=== PATIENT | female | born 1980 | race Caucasian/White ===

== ENCOUNTER 2020-12-05 07:46 | Day surgery (SDC) | payer MEDICAID ==
[2020-12-05] MEDS ORDERED: Propofol 200 MG/20 ML SDV ONE ×4 (08:28→09:47)
[2020-12-05] MEDS ORDERED: Midazolam 1 MG/ML 2 ML SDV ONE (08:28)
[2020-12-05] MEDS ORDERED: fentaNYL 100 MCG/2 ML SDV ONE (08:28)
[2020-12-05] MEDS: Sodium Chloride 0.9% 1,000 ML IV SCH (08:30)
[2020-12-05] MEDS: ceFAZolin 2 GM in Premix Bag 1 BAG IV ONE (09:17)
[2020-12-05] MEDS: metroNIDAZOLE/Normal Saline 500 MG in Premix Bag 1 BAG IV ONE (09:19)
[2020-12-05] MEDS: Bupivacaine 0.5% 50 ML MDV ONE (09:40)
[2020-12-05] MEDS: Lidocaine 1% with EPINEPHrine 1:100,000 50 ML MDV ONE (09:40)
--- NOTE | 2020-12-06 10:07 | OR ---
DATE OF PROCEDURE: 12/05/2020 SURGEON: Riaz Hennessy MD PROCEDURE: Excision of vaginal cyst, right inferior aspect. PREOPERATIVE DIAGNOSIS: Vaginal cyst. POSTOPERATIVE DIAGNOSIS: Vaginal cyst. RISKS: Risks, benefits, alternatives, and limitations including, but not limited to infection, bleeding, perforation, false positives and false negatives were explained to the patient and she wished to proceed. PROCEDURE IN DETAIL: The patient was placed in supine position. The area was prepped and draped. The vaginal cyst would be on the inferior posterior aspect of the labia majora. This was numbed with 1% lidocaine. A single incision was made approximately 1.5 cm in size. This was then excised in total with a Metzenbaum scissors. The cystic-type lesion was not perforated during removal. This wound was closed with interrupted chromic sutures after irrigation. The patient tolerated the procedure well. Riaz Hennessy MD /[id number]
== END 2020-12-05 11:10 | disposition home or self-care (01) ==
LOC: JP.SDS 07:46
PROVIDERS: ATTEND Surgery
DX: D39.8 Neoplasm of uncertain behavior of other specified female genital organs (principal); G89.29 Other chronic pain; Z79.899 Other long term (current) drug therapy; Z87.891 Personal history of nicotine dependence
CPT/HCPCS: 81025; 88305; 88342; 88360; J0690; J2250; J2704; J3010; J3490; J7030

== ENCOUNTER 2021-07-24 14:40 | Emergency (ER) | payer OTHER, MEDICAID ==
[2021-07-24] MEDS ORDERED: Iopamidol 612 MG/ML 100 ML Bottle IV SCH (17:00)
[2021-07-24] MEDS ORDERED: Sodium Chloride 0.9% 80 ML IV SCH (17:00)
--- NOTE | 2021-07-24 18:03 | CRLCT ---
For Patients: As a result of the Century Cures Act, medical imaging exams and procedure reports are released immediately into your electronic medical record. You may view this report before your referring provider. If you have questions, please contact your health care provider. INDICATION: Throat pain. Difficulty swallowing. TECHNIQUE: CT of the neck with 100 cc Isovue-300 iodinated contrast agent. Coronal and sagittal reconstructions are included. COMPARISON: None. FINDINGS: There is no mass or lymphadenopathy within the suprahyoid or infrahyoid neck. The oral cavity, nasopharyngeal, oropharyngeal and hypopharyngeal spaces are normal. The supraglottic, glottic and infraglottic larynx are normal. The airway including the trachea is normal and is patent. The parotid glands, submandibular and sublingual glands are normal in appearance. The thyroid gland is normal in appearance. The vascular structures opacify normally with contrast material. No suspicious lytic or blastic osseous lesions. Scattered cervical spondylosis without significant bony neural foraminal stenosis. No periapical dental disease. Visualized paranasal sinuses and mastoid air cells are clear. Visualized orbital and intracranial contents are normal. Supraclavicular regions, mediastinum and soft tissues of the imaged chest wall are normal. Visualized portions of the upper lungs are clear. IMPRESSION: 1. No evidence of active inflammatory/infectious process involving the deep spaces of the suprahyoid/infrahyoid neck. 2. No mass or lymphadenopathy within the neck. Please note that all CT scans at this facility use dose modulation, iterative reconstruction, and/or weight-based dosing when appropriate to reduce radiation dose to as low as reasonably achievable. Dictated by Aniceto Rich MD @ 07/24/2021 6:02:04 PM (Electronically Signed)
--- NOTE | 2021-07-24 18:36 | EDM.PDOC ---
ED HPI GENERAL MEDICAL PROBLEM - General Chief Complaint: ENT Problem Stated Complaint: HARD SWALLOWING Time Seen by Provider: 07/24/21 16:30 Source of Information: Reports: Patient, Old Records History Limitations: Reports: No Limitations - History of Present Illness INITIAL COMMENTS - FREE TEXT/NARRATIVE: Vandana is a 41-year-old female for med xanthine to the ED for evaluation of painful swallowing and difficulty swallowing for the last 1 to 2 months. Patient has a history for [place] complex and is concerned that there may be mucosal mass that is impeding her ability to swallow. She has been seen multiple times in the clinic for this without any resolution of symptoms. She does have a history also of gastroesophageal reflux disease and takes omeprazole for this. She denies any fever or chills, difficulty with breathing, nausea or vomiting. Throat Pain Score (Numeric/FACES): 9 - Related Data Allergies Allergy/AdvReac Type Severity Reaction Status Date / Time No Known Allergies Allergy Verified 07/24/21 15:19 Home Meds: Home Meds Acetaminophen [Acetaminophen Extra Strength] 1,000 mg PO Q8HR PRN 12/02/20 [History] Ibuprofen [Motrin] 800 mg PO Q8HR PRN 12/02/20 [History] hydrOXYzine HCL [hydrOXYzine] 25 mg PO DAILY PRN 12/02/20 [History] Melatonin 5 mg PO BEDTIME PRN 12/05/20 [History] Fluconazole [Diflucan] 100 mg PO DAILY #15 tab 07/24/21 [Rx] Past Medical History HEENT History: Reports: None Cardiovascular History: Reports: None Respiratory History: Reports: None Gastrointestinal History: Reports: None Genitourinary History: Reports: None [employer] History: Reports: None Musculoskeletal History: Reports: None Neurological History: Reports: None Psychiatric History: Reports: None Endocrine/Metabolic History: Reports: None Hematologic History: Reports: None Immunologic History: Reports: None Oncologic (Cancer) History: Reports: None Other Oncologic History: thibodeaux complex history Dermatologic History: Reports: None Other Dermatologic History: Thibodeaux complex cyst involved - Infectious Disease History Infectious Disease History: Reports: Novel Coronavirus Other Infectious Disease History: had covid in April - Past Surgical History HEENT Surgical History: Reports: Myringotomy w Tube(s) Cardiovascular Surgical History: Reports: None Respiratory Surgical History: Reports: None GI Surgical History: Reports: None Female Surgical History: Reports: Section Other Female Surgeries/Procedures: Thibodeaux complex cyst removed Endocrine Surgical History: Reports: None Neurological Surgical History: Reports: None Musculoskeletal Surgical History: Reports: None Oncologic Surgical History: Reports: None Dermatological Surgical History: Reports: None Social & Family History - Tobacco Use Tobacco Use Status *Q: Never Tobacco User - Caffeine Use Caffeine Use: Reports: Coffee, Soda - Recreational Drug Use Recreational Drug Use: No ED ROS ENT - Review of Systems Review Of Systems: See Below Constitutional: Reports: No Symptoms HEENT: Reports: Throat Pain (Difficulty swallowing with pain with swallowing) Respiratory: Reports: No Symptoms Cardiovascular: Reports: No Symptoms Endocrine: Reports: No Symptoms GI/Abdominal: Reports: No Symptoms : Reports: No Symptoms Musculoskeletal: Reports: No Symptoms Skin: Reports: No Symptoms Neurological: Reports: No Symptoms Psychiatric: Reports: No Symptoms Hematologic/Lymphatic: Reports: No Symptoms ED EXAM, ENT - Physical Exam Exam: See Below Exam Limited By: No Limitations General Appearance: Alert, Anxious, Mild Distress, Other (Tearful) Eye Exam: Bilateral Eye: EOMI, PERRL Nose: Normal Inspection, Normal Mucousa Mouth/Throat: Normal Inspection, Normal Gums, Normal Lips, Normal Oropharynx Head: Atraumatic, Normocephalic Neck: Normal Inspection, Supple, Non-Tender, Full Range of Motion Respiratory/Chest: No Respiratory Distress, Lungs Clear, Normal Breath Sounds, No Accessory Muscle Use. No: Stridor Cardiovascular: Normal Peripheral Pulses, Regular Rate, Rhythm, No Murmur Neurological: Alert, Oriented, CN II-XII Intact, Normal Cognition, No Motor/Sensory Deficits Psychiatric: Anxious, Tearful Course - Vital Signs Last Recorded V/S: Last Vital Signs Temp 36.6 C 07/24/21 15:18 Pulse 72 07/24/21 15:18 Resp 16 07/24/21 15:18 BP 155/98 H 07/24/21 15:18 Pulse Ox 99 07/24/21 15:18 - Orders/Labs/Meds Orders: Active Orders 24 hr Category Date Time Status Iopamidol [Isovue-300 (61%)] Med 07/24/21 17:00 Active 100 ml IV . DIRECTED Sodium Chloride 0.9% [Normal Saline] 80 ml Med 07/24/21 17:00 Active IV ASDIRECTED Medication Orders Sodium Chloride (Normal Saline) 80 mls @ 3 mls/sec IV ASDIRECTED ROSAURA Last Admin: 07/24/21 17:16 Dose: 3 mls/sec Documented by: STACMAG Iopamidol (Iopamidol 612 Mg/Ml 100 Ml Bottle) 100 ml IV . DIRECTED ROSAURA Last Admin: 07/24/21 17:16 Dose: 100 ml Documented by: HI Labs: Laboratory Tests 07/24/21 07/24/21 Range/Units 16:50 16:50 WBC 7.0 (4.5-11.0) K/uL RBC 4.19 (3.30-5.50) M/uL Hgb 11.5 L (12.0-15.0) g/dL Hct 36.6 (36.0-48.0) % MCV 87 (80-98) fL MCH 27 (27-31) pg MCHC 31 L (32-36) % Plt Count 270 (150-400) K/uL Neut % (Auto) 50.9 (36-66) % Lymph % (Auto) 40.9 (24-44) % [place]ades % (Auto) 6.2 H (2-6) % Eos % (Auto) 1.6 L (2-4) % Baso % (Auto) 0.4 (0-1) % Sodium 144 (140-148) mmol/L Potassium 4.4 (3.6-5.2) mmol/L Chloride 107 (100-108) mmol/L Carbon Dioxide 25 (21-32) mmol/L Anion Gap 11.6 (5.0-14.0) mmol/L BUN 12 (7-18) mg/dL Creatinine 0.9 (0.6-1.0) mg/dL Est Cr Clr Drug Dosing 67.36 mL/min Estimated GFR (MDRD) > 60 (>60) Glucose 94 (74-106) mg/dL Calcium 8.6 (8.5-10.1) mg/dL C-Reactive Protein 0.06 (0.0-0.3) mg/dL Meds: Medications Generic Name Dose Route Start Last Admin Trade Name Freq PRN Reason Stop Dose Admin Sodium Chloride 80 mls @ 3 mls/sec 07/24/21 17:00 07/24/21 17:16 Normal Saline IV 3 mls/sec ASDIRECTED ROSAURA Administration Iopamidol 100 ml 07/24/21 17:00 07/24/21 17:16 Iopamidol 612 Mg/Ml 100 Ml Bottle IV 100 ml . DIRECTED ROSAURA Administration - Radiology Interpretation Free Text/Narrative:: Reviewed the images of the CT of the soft tissue neck with contrast as well as the report. The report is as follows: FINDINGS: There is no mass or lymphadenopathy within the suprahyoid or infrahyoid neck. The oral cavity, nasopharyngeal, oropharyngeal and hypopharyngeal spaces are normal. The supraglottic, glottic and infraglottic larynx are normal. The airway including the trachea is normal and is patent. The parotid glands, submandibular and sublingual glands are normal in appearance. The thyroid gland is normal in appearance. The vascular structures opacify normally with contrast material. No suspicious lytic or blastic osseous lesions. Scattered cervical spondylosis without significant bony neural foraminal stenosis. No periapical dental disease. Visualized paranasal sinuses and mastoid air cells are clear. Visualized orbital and intracranial contents are normal. Supraclavicular regions, mediastinum and soft tissues of the imaged chest wall are normal. Visualized portions of the upper lungs are clear. IMPRESSION: 1. No evidence of active inflammatory/infectious process involving the deep spaces of the suprahyoid/infrahyoid neck. 2. No mass or lymphadenopathy within the neck. Please note that all CT scans at this facility use dose modulation, iterative reconstruction, and/or weight-based dosing when appropriate to reduce radiation dose to as low as reasonably achievable. Dictated by Aniceto Rich MD @ 07/24/2021 6:02:04 PM - Re-Assessments/Exams Free Text/Narrative Re-Assessment/Exam: 07/24/21 18:27 reviewed the patient's labs including a normal CBC, basic metabolic profile and C-reactive protein. In addition, the soft tissue of the neck failed to demonstrate any significant anatomical abnormalities to account for difficulty or painful swallowing. There was no adenopathy, supraglottic or infraglottic abnormalities, esophageal abnormalities, or retropharyngeal abnormalities. I reviewed her [facility] medical record and it appears during her examination on 07/21/2021 they mention cobblestoning in the retropharynx. This raises the question as to whether she may have candidal esophagitis as the cause for her dysphagia and painful swallowing. It may be worthwhile putting her on fluconazole on 200 mg on day 1 and then 100 mg daily for 14 days. 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 Departure - Departure Time of Disposition: 18:43 Disposition: Home, Self-Care 01 Clinical Impression: Candidal esophagitis Difficulty in swallowing Qualifiers: Dysphagia type: unspecified Qualified Code(s): R13.10 - Dysphagia, unspecified - Discharge Information Instructions: Dysphagia Referrals: Leah Lan CNM [Primary Care Provider] - Care Plan Goals: Your work-up today suggest that she may have a yeast infection of the esophagus causing your pain with swallowing. We are going to treat this with Diflucan (fluconazole) 200 mg to be taken by mouth today and then 100 mg a day for the next 13 days. There is no evidence of any Thibodeaux complexes in your mouth, retropharynx, supraglottic or infraglottic structures to account for the dysphagia or difficulty swallowing. The next step would be to do an endoscopy so if you do not improve with the Diflucan, I would recommend following up with either Dr. Hennessy or Dr. Clark in surgery to undergo the scope. Sepsis Event Note (ED) - Evaluation Sepsis Screening Result: No Definite Risk - Focused Exam Vital Signs: Vital Signs Temp Pulse Resp BP Pulse Ox 07/24/21 15:18 36.6 C 72 16 155/98 H 99 - Problem List & Annotations (1) Candidal esophagitis SNOMED Code(s): 19638744 Code(s): B37.81 - CANDIDAL ESOPHAGITIS Status: Acute Priority: High Current Visit: Yes (2) Difficulty in swallowing SNOMED Code(s): 03536027, 611724412 Code(s): R13.10 - DYSPHAGIA, UNSPECIFIED Status: Acute Priority: High Current Visit: Yes Qualifiers: Dysphagia type: unspecified Qualified Code(s): R13.10 - Dysphagia, unspecified - Problem List Review Problem List Initiated/Reviewed/Updated: Yes - My Orders Last 24 Hours: My Active Orders 07/24/21 17:00 Iopamidol [Isovue-300 (61%)] 100 ml IV . DIRECTED Sodium Chloride 0.9% [Normal Saline] 80 ml IV ASDIRECTED - Assessment/Plan Last 24 Hours: My Active Orders 07/24/21 17:00 Iopamidol [Isovue-300 (61%)] 100 ml IV . DIRECTED Sodium Chloride 0.9% [Normal Saline] 80 ml IV ASDIRECTED
== END 2021-07-24 18:57 | disposition home or self-care (01) ==
LOC: JP.ED 14:40
DX: B37.81 Candidal esophagitis (principal)
CPT/HCPCS: 36415; 70491; 80048; 85025; 86140; 99284; Q9967

== ENCOUNTER 2022-12-15 06:55 | Day surgery (SDC) | payer OTHER, MEDICAID ==
[2022-12-15] MEDS ORDERED: Midazolam 1 MG/ML 2 ML SDV ONE (07:10)
[2022-12-15] MEDS ORDERED: fentaNYL 50 MCG/ML SDV ONE (07:10)
[2022-12-15] MEDS ORDERED: Propofol 200 MG/20 ML SDV ONE ×2 (07:10→08:57)
[2022-12-15] MEDS ORDERED: Lactated Ringers 1,000 ML IV SCH (08:59)
== END 2022-12-15 11:00 | disposition home or self-care (01) ==
LOC: JP.SDS 06:55
PROVIDERS: ATTEND Family Medicine
DX: K62.1 Rectal polyp (principal); K64.8 Other hemorrhoids; K64.4 Residual hemorrhoidal skin tags; D44.9 Neoplasm of uncertain behavior of unspecified endocrine gland; K21.9 Gastro-esophageal reflux disease without esophagitis; F17.200 Nicotine dependence, unspecified, uncomplicated
CPT/HCPCS: 45380; 81025; J2250; J2704; J3010; J7120; 88305

== ENCOUNTER 2024-12-20 10:46 | Emergency (ER) | payer MEDICAID ==
[2024-12-20 11:45] LABS: BASOPHILS ABSOLUTE AUTO 0.05 K/uL (0.00-0.10); BASOPHILS PERCENT AUTO 0.8 % (0.1-1.3); EOSINOPHILS ABSOLUTE AUTO 0.09 K/uL (0.00-0.40); EOSINOPHILS PERCENT AUTO 1.5 % (0.0-5.4); HEMATOCRIT 37.3 % (34.3-46.0); HEMOGLOBIN 11.6 g/dL (11.2-15.5); IMMATURE GRAN PERCENT AUTO 0.2 % (0.0-0.7); LYMPHOCYTES ABSOLUTE AUTO 1.98 K/uL (0.8-3.3); MEAN CORPUSCULAR HEMOGLOBIN 26.9 pg (31.6-35.5); MEAN CORPUSCULAR HGB CONC 31.1 g/dL (31.6-35.5); MEAN CORPUSCULAR VOLUME 86.5 fL (81.4-99.0); MONOCYTES ABSOLUTE AUTO 0.38 K/uL (0.20-0.90); MONOCYTES PERCENT AUTO 6.3 % (3.3-12.6); NEUTROPHILS ABSOLUTE AUTO 3.49 K/uL (1.0-7.6); NEUTROPHILS PERCENT AUTO 58.2 % (40.0-78.1); PLATELET COUNT,PLT 272 K/uL (130-375); RED BLOOD CELL COUNT 4.31 M/uL (3.77-5.24)
[2024-12-20] MEDS: Simethicone 125 MG Tab.Chew PO ONE (11:49)
[2024-12-20 11:50] LABS: IMMATURE GRAN ABSOLUTE AUTO 0.01 K/uL (0.00-0.23)
[2024-12-20 11:59] LABS: ALANINE AMINOTRANSFERASE,ALT 33 U/L (12-78); ALKALINE PHOSPHATASE 88 U/L (46-116); ANION GAP 17.7 mmol/L (5.0-14.0); ASPARTATE AMNIOTRANSFERASE,AST 24 U/L (15-37); BILIRUBIN TOTAL 0.4 mg/dL (0.2-1.0); BLOOD UREA NITROGEN,BUN 10 mg/dL (7-18); C-REACTIVE PROTEIN 1.53 mg/dL (<0.50); CALCIUM 8.9 mg/dL (8.5-10.1); CARBON DIOXIDE,CO2 23 mmol/L (21-32); CHLORIDE,CL 101 mmol/L (100-108); EST CRCL DRUG DOSING (CG) 58.77 mL/min; ESTIMATED GFR 71 mL/min (>60); GLUCOSE RANDOM 97 mg/dL (74-106); POTASSIUM,K 3.7 mmol/L (3.6-5.2); PROTEIN TOTAL,TP 7.9 g/dL (6.4-8.2); SODIUM,NA 138 mmol/L (140-148)
== END 2024-12-20 13:52 | disposition home or self-care (01) ==
LOC: JP.ED 10:46
DX: K59.00 Constipation, unspecified (principal); Z79.899 Other long term (current) drug therapy; Z86.16 Personal history of COVID-19
CPT/HCPCS: 36415; 80053; 83605; 85025; 86140; 99284; A9270